=== PATIENT | male | born 1965 | race Hispanic/Latino ===

== ENCOUNTER 2018-01-06 22:33 | Emergency (ER) | payer BC ==
[2018-01-06 22:39] VITALS: BP 137/79; PULSE 73; RESP 18; TEMP 97.9; O2SAT 97
--- NOTE | 2018-01-06 22:55 | ED PDOC ---
Upper Extremity Pain/Injury Time Seen by Provider: 01/06/18 22:53 Chief Complaint (Nursing): Upper Extremity Problem/Injury Chief Complaint (Provider): right hand injury History/Exam Limitations: no limitations (52 y/o male tripped and fall today when in poorly lit room. States he landed out on right hand and hit head. Denies any LOC. Denies any headache. No anticoagulants/ plavix. Notes nasal congestion ongoing x 3 days. Is most concerned about right hand swelling and pain. Is right hand dominant.) Past Medical History Reviewed: Historical Data, Nursing Documentation, Vital Signs Vital Signs: Last Vital Signs Temp 97.9 F 01/06/18 22:36 Pulse 73 01/06/18 22:36 Resp 18 01/06/18 22:36 BP 137/79 01/06/18 22:36 Pulse Ox 97 01/06/18 22:36 - Family History Family History: States: No Known Family Hx - Home Medications Home Medications: Ambulatory Orders Medication Instructions Recorded Dicyclomine [Bentyl] 20 mg PO Q12 PRN #20 tab 02/12/15 traMADol [Ultram] 50 mg PO Q6 PRN #16 tab 02/12/15 Fluticasone Propionate [Flonase] 2 spr IN DAILY #1 bottle 01/06/18 Ibuprofen [Motrin] 600 mg PO Q8 PRN #21 tab 01/06/18 Tramadol HCl [Ultram] 50 mg PO BID PRN #8 tab 01/06/18 - Allergies Allergies/Adverse Reactions: Allergies Allergy/AdvReac Type Severity Reaction Status Date / Time Penicillins Allergy RASH Verified 01/06/18 22:39 Review of Systems ROS Statement: Except As Marked, All Systems Reviewed And Found Negative Physical Exam - Reviewed Nursing Documentation Reviewed: Yes Vital Signs Reviewed: Yes - Physical Exam Appears: Positive for: Well, Non-toxic, No Acute Distress Head Exam: Positive for: ATRAUMATIC, NORMAL INSPECTION, NORMOCEPHALIC Skin: Positive for: Normal Color, Warm, DRY Eye Exam: Positive for: EOMI, Normal appearance, PERRL ENT: Positive for: Other (nasal congestion noted.). Negative for: Normal ENT Inspection Neck: Positive for: Normal, Painless ROM Cardiovascular/Chest: Positive for: Regular Rate, Rhythm Respiratory: Positive for: CNT, Normal Breath Sounds Gastrointestinal/Abdominal: Positive for: Normal Exam, Soft Back: Positive for: Normal Inspection Extremity: Positive for: Normal ROM, Tenderness, Swelling (swelling right thenar prominence; mild ecchymosis noted.) Neurologic/Psych: Positive for: Alert, Oriented - ECG O2 Sat by Pulse Oximetry: 97 - Progress ED Course And Treament: motrin 600mg x 1 dose. xry of hand vrad impression IMPRESSION: 1. No acute osseous abnormality of the right hand. 2. Mild osteoarthrosis of the first carpometacarpal, first metacarpophalangeal, and second distal interphalangeal joints. Thank you for allowing us to participate in the care of your patient. Dictated and Authenticated by: Konrad Goodwin DO 01/06/2018 11:27 PM Eastern Time ([place] & [place]) given thumb spica splint velcro TETANUS UP TO DATE 2013 Disposition - Clinical Impression Clinical Impression: Closed head injury, Contusion of hand - Patient ED Disposition Is Patient to be Admitted: No - Disposition Referrals: Annie Khanna MD [Staff Provider] - Disposition: Routine/Home Disposition Time: 23:30 Condition: FAIR Prescriptions: Fluticasone Propionate [Flonase] 2 spr IN DAILY #1 bottle Ibuprofen [Motrin] 600 mg PO Q8 PRN #21 tab PRN Reason: Pain, Moderate (4-7) Tramadol HCl [Ultram] 50 mg PO BID PRN #8 tab PRN Reason: Pain, Moderate (4-7) Instructions: Sinusitis in Adults, Contusion (DC) Forms: [facility] ED School/Work Excuse
--- NOTE | 2018-01-07 08:11 | RAD ---
Date of service: 01/06/2018 HISTORY: hand injury COMPARISON: No prior FINDINGS: BONES: Normal. No fracture. JOINTS: Normal. No osteoarthritis. SOFT TISSUE: Normal. OTHER FINDINGS: None . IMPRESSION: Normal Bone Xray.
== END 2018-01-06 23:52 | disposition home or self-care (01) ==
LOC: H.ER 22:33
DX: S09.90XA Unspecified injury of head, initial encounter (principal); S60.221A Contusion of right hand, initial encounter; W19.XXXA Unspecified fall, initial encounter; Y92.89 Other specified places as the place of occurrence of the external cause; Z88.0 Allergy status to penicillin